=== PATIENT | male | born 1955 | race African-American/Black ===

== ENCOUNTER 2017-11-22 17:31 | Emergency (ER) | payer MEDICARE, MEDICAID ==
[2017-11-22] MEDS ORDERED: Ketorolac Tromethamine 30 MG/ML VIAL ONE (18:47)
--- NOTE | 2017-11-22 19:16 | RAD ---
TWO VIEWS LEFT HIP 11/22/17 INDICATION: Mechanical fall with left hip pain. FINDINGS: There is subtle irregularity seen at the superior aspect of the femoral head/neck junction on both th e frogleg lateral and the AP projection suspicious for a nondisplaced subcapital femoral neck fractur e. Dedicated CT of the left hip is recommended for additional characterization. There is moderate lef t hip osteoarthrosis. IMPRESSION: Findings suspicious for a nondisplaced subcapital femoral neck fracture. Further evaluation with CT i s recommended for additional characterization. POS: [facility]
[2017-11-22 19:20] LABS: #Eosinphils 0.1 thou/uL (0.0-0.7); #Lymphocytes 1.1 thou/uL (1.20-3.40); #Monocytes 0.2 thou/uL (0.11-0.59); #Neutrophils 1.3 thou/uL (1.40-6.50); %Basophils 0.9 % (0.0-1.0); %Eosinophils 2.3 % (0.0-10.0); %Lymphocytes 41.3 % (21.0-51.0); %Monocytes 7.2 % (0.0-10.0); %Neutrophils 48.3 % (42.0-75.0); Mean Corpuscular Hemoglobin 27.3 pg (27.0-31.0); Mean Corpuscular Volume 80.2 fL (78.0-98.0); Mean Platelet Volume 7.4 fL (7.4-10.4); Platelet Count 162 thou/uL (130-400); RBC Distribution Width 13.3 % (11.5-14.5); Red Blood Cell (RBC) Count 4.76 mill/uL (4.70-6.10); White Blood Cell (WBC) Count 2.7 thou/uL (4.8-10.8)
[2017-11-22 19:40] LABS: ALT (SGPT) 14 U/L (8-55); AST (SGOT) 19 U/L (5-34); Albumin 4.2 g/dL (3.4-4.8); Alkaline Phosphatase 88 U/L (40-150); Anion Gap 11 mmol/L (10-20); BUN (Urea Nitrogen) 24 mg/dL (8.4-25.7); Bilirubin, Total 0.7 mg/dL (0.2-1.2); CK (CPK) 366 U/L (30-200); Calc. Creatinine Clearance 0 mL/min (70-130); Calcium 9.4 mg/dL (7.8-10.44); Carbon Dioxide 26 mmol/L (23-31); Chloride 106 mmol/L (98-107); Estimated GFR-MDRD 55; Globulin 3.7 g/dL (2.4-3.5); Glucose 78 mg/dL (80-115); Protein, Total 7.9 g/dL (5.8-8.1); Sodium 139 mmol/L (136-145)
--- NOTE | 2017-11-22 20:04 | CT ---
CT OF PELVIS 11/22/17 COMPARISON: None. HISTORY: Fall, trauma, pain. TECHNIQUE: Serial axial CT imaging at 3.75 mm intervals through the pelvis without contrast. Coronal and sagitta l reformatted imaging obtained. FINDINGS: There is significant degenerative change involving the imaged lower lumbar spine with disc space narr owing and bilateral facet osteophyte formation. There is no widening of the sacroiliac joints or the pubic symphysis. Neither hip appears dislocation. There is mild/moderate bilateral hip degenerative change with joint space narrowing, subchondral sclerosis and osteophyte formation. No fracture is seen on either side. Bilateral inferior and superior pubic rami appear intact with no evidence for fracture. No evidence f or a sacral fracture. IMPRESSION: No acute osseous abnormality. Hip degenerative changes noted bilaterally. This study was reviewed in consultation with Dr. Head who is in agreement. POS: [facility]
[2017-11-22] MEDS ORDERED: Penicillin V Potassium 250 MG TAB PO SCH (21:15)
== END 2017-11-22 22:06 | disposition home or self-care (01) ==
LOC: ERS 17:31
DX: N17.9 Acute kidney failure, unspecified (principal); M54.32 Sciatica, left side; K02.9 Dental caries, unspecified; I10 Essential (primary) hypertension; B20 Human immunodeficiency virus [HIV] disease; E11.9 Type 2 diabetes mellitus without complications; M25.561 Pain in right knee; M25.552 Pain in left hip; K03.81 Cracked tooth; Z79.4 Long term (current) use of insulin; Z79.899 Other long term (current) drug therapy; W18.30XA Fall on same level, unspecified, initial encounter
CPT/HCPCS: 36415; 72192; 80053; 82550; 85025; 96361; 96374; J1885

== ENCOUNTER 2017-12-04 11:03 | Emergency (ER) | payer MEDICARE, MEDICAID ==
[2017-12-04] MEDS ORDERED: HYDROcodone/Acetaminophen 5/325 mg Tablet ONE (12:46)
--- NOTE | 2017-12-04 13:18 | RAD ---
2 VIEWS LEFT TIBIA AND FIBULA: Date: 12/04/17 HISTORY: Left lower extremity pain from level of the knee to the ankle. Increased pain with movement and press ure. FINDINGS: No fracture or dislocation is seen involving the left tibia or fibula. No other osseous abnormality. IMPRESSION: No acute osseous abnormality. POS: [facility]
--- NOTE | 2017-12-04 13:19 | RAD ---
4 VIEWS LEFT KNEE: Date: 12/04/17 HISTORY: Left lower extremity pain from the level of the knee to the left of the ankle on the left. IMPRESSION: There is mild tricompartment osteophytosis. Calcifications overlie both the medial and lateral compar tment suggesting chondrocalcinosis. No significant joint space narrowing is present. There is no evid ence of a fracture or dislocation involving the left knee. IMPRESSION: Mild osteoarthritis without evidence of an acute osseous abnormality. POS: [facility]
== END 2017-12-04 13:39 | disposition home or self-care (01) ==
LOC: ERS 11:03
DX: M79.662 Pain in left lower leg (principal); B20 Human immunodeficiency virus [HIV] disease; I10 Essential (primary) hypertension; E11.9 Type 2 diabetes mellitus without complications; Z79.4 Long term (current) use of insulin; Z79.899 Other long term (current) drug therapy
CPT/HCPCS: 36416

== ENCOUNTER 2018-06-02 20:35 | Emergency (ER) | payer MEDICARE, MEDICAID | END 2018-06-02 20:50 | disposition home or self-care (01) | LOC: ERS 20:35 | DX: K03.81 Cracked tooth (principal); M19.90 Unspecified osteoarthritis, unspecified site; B20 Human immunodeficiency virus [HIV] disease; I10 Essential (primary) hypertension; E11.39 Type 2 diabetes mellitus with other diabetic ophthalmic complication; H42 Glaucoma in diseases classified elsewhere; Z79.899 Other long term (current) drug therapy | CPT/HCPCS: 99283 ==

== ENCOUNTER 2018-06-27 06:26 | Emergency (ER) | payer MEDICARE, MEDICAID | END 2018-06-27 09:36 | disposition home or self-care (01) | LOC: ERS 06:26 | DX: K02.9 Dental caries, unspecified (principal); B20 Human immunodeficiency virus [HIV] disease; I10 Essential (primary) hypertension; E11.9 Type 2 diabetes mellitus without complications | CPT/HCPCS: 99283 ==

== ENCOUNTER 2018-10-31 22:26 | Observation (INO) | payer MEDICARE, MEDICAID ==
--- NOTE | 2018-10-31 22:50 | RAD ---
PORTABLE [place]IVID[place]: 10/31/18 HISTORY: Chest pain. COMPARISON: 07/07/13 exam. Heart size and mediastinum within normal limits. The lungs are clear of infiltrates. There are no sig nificant bony findings. IMPRESSION: No active intrathoracic disease. POS: [facility]
[2018-10-31 23:01] LABS: #Lymphocytes 1.2 thou/uL (1.20-3.40); #Monocytes 0.5 thou/uL (0.11-0.59); #Neutrophils 5.9 thou/uL (1.40-6.50); %Basophils 0.3 % (0.0-1.0); %Eosinophils 0.4 % (0.0-10.0); %Lymphocytes 15.3 % (21.0-51.0); Mean Corpuscular HGB CONC 33.8 g/dL (32.0-36.0); Mean Corpuscular Hemoglobin 26.6 pg (27.0-31.0); Mean Corpuscular Volume 78.7 fL (78.0-98.0); Mean Platelet Volume 8.6 fL (7.4-10.4); Platelet Count 190 thou/uL (130-400); Red Blood Cell (RBC) Count 6.01 mill/uL (4.70-6.10); White Blood Cell (WBC) Count 7.5 thou/uL (4.8-10.8)
[2018-10-31 23:22] LABS: ALT (SGPT) 17 U/L (8-55); AST (SGOT) 17 U/L (5-34); Albumin 5.1 g/dL (3.4-4.8); Alkaline Phosphatase 115 U/L (40-150); Anion Gap 21 mmol/L (10-20); BUN (Urea Nitrogen) 32 mg/dL (8.4-25.7); Calc. Creatinine Clearance 0 mL/min (70-130); Calcium 11.1 mg/dL (7.8-10.44); Carbon Dioxide 17 mmol/L (23-31); Chloride 106 mmol/L (98-107); Estimated GFR-MDRD 24; Globulin 4.6 g/dL (2.4-3.5); Glucose 140 mg/dL (80-115); Lipase 50 U/L (8-78); Potassium 5.1 mmol/L (3.5-5.1); Protein, Total 9.7 g/dL (5.8-8.1); Sodium 139 mmol/L (136-145)
[2018-10-31] MEDS ORDERED: Morphine 4 MG/ML VIAL ONE (23:42)
[2018-10-31] MEDS ORDERED: Aspirin 325 MG TAB ONE (23:42)
[2018-10-31 23:43] LABS: CKMB 3.5 ng/mL (0-6.6)
--- NOTE | 2018-11-01 02:10 | PDOC.FPRHP ---
- History of Present Illness Chief Complaint: multiple complaints History of Present Illness: Mr. Mccracken if a 63 yo AAM with PMH HIV, latent TB, cHTN, IDDM2, anemia who presents to the ER for chest pain. He actually points at the RUQ of his abdomen saying it's been causing him a sharp pain for the past 4 days. He describes the location along his ribs, worse with movement and deep breaths, better with rest. Denies prior cardiac history. Has not been to doctor in a long time. Has a multitude of other symptoms he has been experiencing including emesis x1 yesterday (no blood noted), two episodes of loose diarrhea. Denies fevers, postprandial pain, dysuria. Denies orthopnea or lower leg swelling. 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 ED Course: Was given ASA & morphine. EKG showed 1mm ST elevations in V2/V3. - Allergies/Adverse Reactions Allergies Allergy/AdvReac Type Severity Reaction Status Date / Time No Known Allergies Allergy Verified 11/01/18 04:06 - Home Medications Medication Instructions Recorded Confirmed Type HumaLOG [HumaLOG Vial] 10 unit SQ AC 02/23/13 11/01/18 History Gabapentin [Neurontin] 100 mg PO BID 07/08/13 11/01/18 History Elviteg/Cob/Emtri/Tenofo Disop 1 tab PO QAM-WM #0 tablet 02/09/14 11/01/18 Rx [Stribild] Lisinopril [Zestril] 10 mg PO DAILY #30 tab 09/21/16 11/01/18 Rx Insulin Detemir [Levemir] 60 unit SQ BID 11/01/18 11/01/18 History - History PMHx:HIV, HTN, anemia, gout, IDDM2, latent TB PSHx: right hand surgery, back surgery for ruptured lumbar discs FHx:Cancer (mom), DM, HTN Social: denies TAD - Review of Systems General: denies: fever/chills, weight/appetite/sleep changes Respiratory: reports: shortness of breath Cardiovascular: denies: chest pain, edema Gastrointestinal: reports: nausea, vomiting, diarrhea, abdominal pain. denies: constipation, GI bleeding Skin: denies: rashes, lesions Musculoskeletal: reports: pain, tenderness Neurological: denies: seizure, weakness - Vital signs BP: [146/76] HR: [68] RR: [15] Tmax: [97.5] Pox: [98]% on [RA] Wt: [83kg] - Physical Exam Constitutional: NAD, awake, alert and oriented HEENT: normocephalic and atraumatic, PERRLA, EOMI -HEENT: disheveled appearing dry mucosal membranes Neck: supple, FROM Chest: no-tender to palpation Heart: RRR, normal S1/S2, no murmurs/rubs/gallops, pulses present Lungs: CTAB, no respiratory distress, good air movement -Abdomen: epigastric tenderness to palpation suprapubic tenderness to palpation negative murphys, negative rovsings no guarding or rebound Musculoskeletal: normal tone, ROM grossly normal -Musculoskeletal: tenderness along thoracic paraspinal muscles and along right rib cage Neurological: no focal deficit, CN II-XII intact Skin: no rash/lesions -Skin: dec skin turgor Heme/Lymphatic: no unusual bruising or bleeding -Heme/Lymphatic: poor hygiene of feet FMR H&P: Results - Labs Result Diagrams: 11/01/18 14:01 11/01/18 14:01 Lab results: WBC 7.5 thou/uL (4.8-10.8) 10/31/18 22:47 Hgb 16.0 g/dL (14.0-18.0) 10/31/18 22:47 Hct 47.3 % (42.0-52.0) 10/31/18 22:47 MCV 78.7 fL (78.0-98.0) 10/31/18 22:47 Plt Count 190 thou/uL (130-400) 10/31/18 22:47 Neutrophils % 78.0 % (42.0-75.0) H 10/31/18 22:47 Sodium 139 mmol/L (136-145) 10/31/18 22:47 Potassium 5.1 mmol/L (3.5-5.1) 10/31/18 22:47 Chloride 106 mmol/L (98-107) 10/31/18 22:47 Carbon Dioxide 17 mmol/L (23-31) L 10/31/18 22:47 BUN 32 mg/dL (8.4-25.7) H 10/31/18 22:47 Creatinine 3.17 mg/dL (0.7-1.3) H 10/31/18 22:47 Glucose 140 mg/dL (80-115) H 10/31/18 22:47 Calcium 11.1 mg/dL (7.8-10.44) H 10/31/18 22:47 Total Bilirubin 1.0 mg/dL (0.2-1.2) 10/31/18 22:47 AST 17 U/L (5-34) 10/31/18 22:47 ALT 17 U/L (8-55) 10/31/18 22:47 Alkaline Phosphatase 115 U/L (40-150) 10/31/18 22:47 CK-MB (CK-2) 3.5 ng/mL (0-6.6) 10/31/18 22:47 Serum Total Protein 9.7 g/dL (5.8-8.1) H 10/31/18 22:47 Albumin 5.1 g/dL (3.4-4.8) H 10/31/18 22:47 Lipase 50 U/L (8-78) 10/31/18 22:47 - Radiology Interpretation CT scan - abdomen Status: pending US - abdomen Status: report reviewed by me Additional comment: neg for cholecystitis Chest x-ray Additional comment: no acute cardiopulm processes FMR H&P: A/P - Problem List (1) Atypical chest pain Current Visit: Yes Status: Acute Code(s): R07.89 - OTHER CHEST PAIN (2) RUQ pain Current Visit: Yes Status: Acute Code(s): R10.11 - RIGHT UPPER QUADRANT PAIN (3) CELIO (acute kidney injury) Current Visit: Yes Status: Acute Code(s): N17.9 - ACUTE KIDNEY FAILURE, UNSPECIFIED (4) Diabetes mellitus, insulin dependent (IDDM), controlled Current Visit: No Status: Acute Code(s): E11.9 - TYPE 2 DIABETES MELLITUS WITHOUT COMPLICATIONS; Z79.4 - OCCUPATIONAL HEALTH RN (CURRENT) USE OF INSULIN (5) HIV (human immunodeficiency virus infection) Current Visit: No Status: Acute (6) HTN (hypertension) Current Visit: No Status: Acute Code(s): I10 - ESSENTIAL (PRIMARY) HYPERTENSION Qualifiers: Hypertension type: essential hypertension Qualified Code(s): I10 - Essential (primary) hypertension (7) Iron deficiency anemia Current Visit: No Status: Acute Code(s): D50.9 - IRON DEFICIENCY ANEMIA, UNSPECIFIED Qualifiers: Iron deficiency anemia type: unspecified iron deficiency Qualified Code(s) : D50.9 - Iron deficiency anemia, unspecified (8) Neuropathy Current Visit: No Status: Acute Code(s): G62.9 - POLYNEUROPATHY, UNSPECIFIED - Plan 63 yo AAM with HIV, cHTN, gout, IDDM2, latent TB, HLD #Atypical chest pain -Heart score 4, EKG with 1mm ST elevation in V2/V3 -Indeterminate troponin .188, continue to trend -Per patient may have had NST done a year ago, not sure. No records in chart. NPO at midnight with stress test in AM -Admit to tele/obs for ACS rule out #RUQ pain -CT abd/pelvis wnl per ER provider, official read pending -Obtain RUQ U/S -pantoprazole #CELIO -Cr 3.17, unsure of baseline -mIVF, rpt BMP in AM #HIV -has not seen Dr. De La Fuente for a year -rx follow up outpatient -will check CD4 count due to noncompliance with f/u -continue stribild #cHTN -home meds #IDDM2 -sliding scale while NPO -can resume home meds after stress test #Latent TB -per patient, completed treatment with health department this year #Chronic hep C -In remission per patient -Will check HCV titer PCP: CC dvt ppx: heparin TID gi px: pantoprazole dispo: <2 midnights Discussed w/ Dr. Mclain FMR H&P: Upper Level - Plan Date/Time: 11/01/18 0210 Mark Carey, have evaluated this patient and agree with findings/plan as outlined by internal combustion engine subassembler resident. Pertinent changes/additions are listed here. HPI Pt is a 63 y/o M with hx/o HIV, DM, HTN, HepC(Treated), presenting for chest pain. Complains of chest pain and SOB for 4d. R sided and radiating to R shoulder. Associated SOB occasionally with exertion. Associated vomiting and diarrhea for 2d with decreased appetite. No recent travel or unusual foods. Has had increased fatigue and loss of balance in the past several weeks. Admits to normal intake and is usually thirsty. Is on Stribild for HIV and states he is compliant, but has not seen Dr De La Fuente in several years. Not aware of any renal disorder he has. PROBLEM LISTANDPLAN: # Elvated Troponins- Possibly 2/2 acute renal failure and demand, but does have slight ST elevation of 1mm in V2-3 that does not qualify as STEMI. Chest pain is atypical and mostly in RUQ and R lateral mid back but very difficult to quantify. Possible referred pain from GB? Will continue to trend Troponins and serial EKGs. Consider stress test in AM as he has multiple comorbid conditions and Heart score 6. # RUQ Tenderness- CT Abdomen/Pelvis WNL, but will order RUQ US for additional evaluation. # CELIO- Unknown etiology, Will obtain urine studies and will continue IVF. Repeat BMP in AM and monitor closely. # HIV- No known acute issues. Will order CD4/VL as has not seen ID in ~2yrs and suspected medication noncompliance. # HTN- No acute issues, continue home medications # Hep C- S/p treatment with [facility] # Back Pain- R lateral ribs. Does have significant arthritic changes on CT. Believe this could be muscle spasm or referred pain. Addendum - Attending - Attending Attestation Date/Time: 11/02/18 [id number] I personally evaluated the patient and discussed the management with I agree with the History, Examination, Assessment and Plan documented above with any addition or exceptions noted below.
[2018-11-01] MEDS ORDERED: Nitroglycerin 0.4 MG TAB (25 Tab Bottle) PO PRN (03:38)
[2018-11-01] MEDS ORDERED: Ondansetron ODT 4 MG TAB PO PRN (03:38)
[2018-11-01] MEDS ORDERED: Dextrose 50% Abboject 50 ML SYRINGE SLOW IVP PRN (03:38)
[2018-11-01] MEDS ORDERED: HumaLOG 300 UNITS/3 ML VIAL SC PRN (03:38)
[2018-11-01] MEDS ORDERED: Dextrose 5% in Water 1,000 ML IV PRN (03:38)
[2018-11-01] MEDS ORDERED: Sodium Chloride 0.9% 1,000 ML IV SCH (03:45)
[2018-11-01 03:46] VITALS: BMI 25.7
[2018-11-01] MEDS: Sodium Chloride 0.9% 1,000 ML IV SCH ×3 (04:21→14:43)
[2018-11-01 05:52] LABS: Hemoglobin A1c 5.8 % (4.0-6.0)
[2018-11-01 06:02] LABS: Bilirubin Small (Negative); Blood, Urine Negative (Negative); Clarity Clear (Clear); Glucose, Urine (Dipstick) Negative (Negative); Leukocyte Negative (Negative); Nitrite Negative (Negative); Protein, Urine (Dipstick) 100 mg/dL (Neg-Trace); Urobilinogen 0.2 mg/dL (0.2-1.0)
[2018-11-01 06:07] LABS: Amphetamine Not Detected (NotDetected); Barbiturates Screen Not Detected (NotDetected); Benzodiazepine Screen Not Detected (NotDetected); Cocaine Metabolite Screen Detected (NotDetected); Medtox Control Line Valid? VALID (VALID); Medtox Reader # READER 1; Methadone Not Detected (NotDetected); Methamphetamine Not Detected (NotDetected); Opiate Screen Detected (NotDetected); Oxycodone Screen Not Detected (NotDetected); Phencyclidine (PCP) Not Detected (NotDetected); THC/Cannabinoid Screen Not Detected (NotDetected); Tricyclic Screen Not Detected (NotDetected)
[2018-11-01 06:13] LABS: Bacteria/HPF Rare-Few HPF (None Seen); RBC/HPF 0-3 HPF (0-3); Squamous Epithelial 0-3 HPF (0-3); WBC/HPF 0-3 HPF (0-3)
[2018-11-01 06:14] LABS: Other Casts/LPF 0-3 FINELY GRAN LPF (0-3 Hyaline); Urine Culture Reflex No No
[2018-11-01] MEDS ORDERED: Cyclobenzaprine 10 MG TAB PO SCH (06:15)
--- NOTE | 2018-11-01 07:03 | ULT ---
GALLBLADDER ULTRASOUND: INDICATIONS: Pain. COMPARISON: 09/19/2016 FINDINGS: There is increased echogenicity of the liver. No acute gallbladder pathology. The common duct is no rmal where visualized, measuring 3 to 4 mm in diameter. No ascites. IMPRESSION: Findings indicate hepatic steatosis. Correlate with liver function enzymes. No acute gallbladder pa thology is identified. POS: [facility]
--- NOTE | 2018-11-01 07:52 | CT ---
PRELIMINARY REPORT/[facility]/EMERGENCY AFTER HOURS PROCEDURE EXAM: CT Abdomen and Pelvis Without Contrast EXAM DATE/TIME: 11/01/2018 12:09 AM CLINICAL HISTORY: 63 years old, male; Other: Back pain; Patient HX: Additional history obtained from EMS, 63 year old m pedro presents to the er with chief complaint of upper epigastric pain and chest tightness with nausea and vomiting. Describes pain as tearing/pulling. Patient reports history of nausea w/ vomiting as wel l. Given Zofran and asa prior to arrival by EMS. Reports extensive medical history including hiv, tb (not active) , dm, HTN , hep c (remission) TECHNIQUE: Imaging protocol: Axial computed tomography images of the abdomen and pelvis without contrast. COMPARISON: No relevant prior studies available. FINDINGS: Liver: Normal. Gallbladder and bile ducts: Normal Pancreas: Normal. Spleen: Normal. Adrenals: Normal. Kidneys and ureters: Normal. Stomach and bowel: Normal. Appendix: Appendix is normal. Intraperitoneal space: Normal. No free air. No significant fluid collection. Vasculature: Normal. No abdominal aortic aneurysm. Lymph nodes: Normal. No enlarged lymph nodes. Bladder: Unremarkable as visualized. Reproductive: Unremarkable as visualized. Bones/joints: Multilevel thoracolumbar spine degenerative changes, with levoscoliosis of the lumbar s pine. Soft tissues: Small fat containing umbilical hernia. IMPRESSION: No acute abdominal or pelvic abnormality. Thank you for allowing us to participate in the care of your patient. Dictated and Authenticated by: Jose R Paulson MD 11/01/2018 1:03 AM Central Time ([place] & [place]) FINAL REPORT CT ABDOMEN AND PELVIS WITHOUT CONTRAST: FINDINGS/IMPRESSION: I agree with the findings and impression given in the preliminary report, per [facility] physician. No evidence of acute intraabdominal/pelvic abnormality. POS: [facility]
[2018-11-01] MEDS ORDERED: Elviteg/Cob/Emtri/Tenofo Disop [Stribild] 1 TAB PO SCH (08:00)
[2018-11-01] MEDS ORDERED: Enoxaparin Sodium 40 MG/0.4 ML SYRINGE SC SCH (09:00)
[2018-11-01] MEDS ORDERED: Enoxaparin Sodium 30 MG/0.3 ML SYRINGE SC SCH (09:00)
[2018-11-01] MEDS: Heparin 5,000 UNITS/ML VIAL SC SCH ×3 (11:18→21:23)
[2018-11-01] MEDS: Aspirin 325 mg Enteric Coated Tablet PO SCH (11:54)
[2018-11-01] MEDS: Gabapentin 100 MG CAP PO SCH ×2 (11:54→21:23)
--- NOTE | 2018-11-01 12:17 | NM ---
NUCLEAR MEDICINE CARDIAC STRESS WITH EF AND WALL MOTION: HISTORY: ACS rule out, chest pain. COMPARISON: None. TECHNIQUE: The patient was administered 10.7 mCi of technetium 99m sestamibi for rest imaging and 33.0 mm of liliya hnetium 99m sestamibi for imaging. Cardiac gating is performed. FINDINGS: Homogeneous distribution of the radiotracer in the left ventricle. No reversibility. No fixed defects . TID is 1.10. End-diastolic volume is 142 mL. End systolic volume 85 mL. Cardiac gating: Normal motion and thickening. 61% ejection fraction. IMPRESSION: 1. 61% ejection fraction. 2. No evidence of fixed defect or reversibility. Homogeneous distribution in the left ventricle. Transcribed Date/Time: 11/01/2018 12:25 PM
[2018-11-01] MEDS ORDERED: Regadenoson 0.4 MG/5 ML SYRINGE ONE (13:09)
[2018-11-01 14:12] LABS: #Eosinphils 0.1 thou/uL (0.0-0.7); #Lymphocytes 1.2 thou/uL (1.20-3.40); #Monocytes 0.4 thou/uL (0.11-0.59); #Neutrophils 2.4 thou/uL (1.40-6.50); %Basophils 0.7 % (0.0-1.0); %Eosinophils 2.5 % (0.0-10.0); %Neutrophils 58.8 % (42.0-75.0); Hemoglobin 13.8 g/dL (14.0-18.0); Mean Corpuscular HGB CONC 33.1 g/dL (32.0-36.0); Mean Corpuscular Hemoglobin 26.5 pg (27.0-31.0); Mean Platelet Volume 8.2 fL (7.4-10.4); Platelet Count 146 thou/uL (130-400); RBC Distribution Width 14.1 % (11.5-14.5); White Blood Cell (WBC) Count 4.1 thou/uL (4.8-10.8)
[2018-11-01 14:32] LABS: Anion Gap 13 mmol/L (10-20); BUN (Urea Nitrogen) 38 mg/dL (8.4-25.7); Calc. Creatinine Clearance 46 mL/min (70-130); Calcium 9.5 mg/dL (7.8-10.44); Carbon Dioxide 23 mmol/L (23-31); Cardiac Risk 3.6 (Less than 4.5); Chloride 107 mmol/L (98-107); Cholesterol 136 mg/dl (< 200 Desired); Estimated GFR-MDRD 43; Glucose 81 mg/dL (80-115); HDL Cholesterol 38 mg/dL (>60 Neg Risk); LDL Cholesterol, Calculated 86 mg/dL; Potassium 4.3 mmol/L (3.5-5.1); Sodium 139 mmol/L (136-145); Triglycerides 59 mg/dL (Less than 150)
--- NOTE | 2018-11-01 19:52 | CON ---
DATE OF CONSULTATION: 11/01/2018 REASON FOR CONSULT: HIV infection, type 2 diabetes poorly controlled, and acute renal failure. HISTORY OF PRESENT ILLNESS: A 63-year-old patient known to me for many years, who has not been in the clinic for 3 years now with a history of longstanding HIV infection with good adherence to anti-retroviral therapy, but poor compliance with clinic visits over the past 3 years. The last time that I saw this patient was in 2017 when he presented with right foot inflammatory process. At that time, he had discontinued his anti-retroviral therapy. No evidence of osteomyelitis or septic arthritis, and he was transitioned to oral antimicrobial therapy for discharge planning. His CD4 cell count is 308 in 2017 and no viral load was done at that time, because he was not on anti-retroviral therapy. He claims to have resumed Stribild, but no control of his viremia and CD4 cell count or other labs were done because of lack of clinic visits and he continued to take his medications reportedly and presented to the emergency room because of what he describes has pain in the right back area close to the subscapular region, radiating around and wrapping around the right chest lateral aspect with a pleuritic component. He had no headaches. No change in visual symptoms, sore throat, odynophagia, or dysphagia. No spine pain. No dyspnea. Some vomiting. No genitourinary symptoms. No other appendicular structure symptoms. No neurological symptoms. PAST MEDICAL HISTORY: HIV seropositive status, his CD4 cell count was 307 in 2017, his last viral load was 48 in 2016. He also has a history of hepatitis C, which was treated in 2016 successfully with a negative viral load three months after completion of treatment with Harvoni. History of type 2 diabetes with erratic control, part of it has to do with his inability to obtain his medication due to financial issues. Hypertension, tuberculosis treated, and rheumatoid arthritis. 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 SOCIAL HISTORY: No smoking. No alcoholic beverage use. FAMILY HISTORY: Noncontributory. ALLERGIES: NONE. MEDICATIONS: Currently receiving; 1. Ecotrin. 2. Neurontin. 3. Heparin. 4. Insulin. 5. Protonix. 6. Stribild. PHYSICAL EXAMINATION: VITAL SIGNS: T-max 97.6, blood pressure 150/70, pulse 69, respirations 16, and O2 saturation 100. SKIN: No particular findings. Peripheral IV access. No Mosley catheter. HEENT: Ocular movements conjugate. Sclerae white. Oral cavity normal. Numerous missing teeth. NECK: Supple. No jugular vein distention. LUNGS: Symmetric clear breath sounds. HEART: S1 and S2. Regular rate. No murmurs. No S3 or S4. Tender spot in the right posterior chest area right at the subscapular region and wrapping around the anterolateral chest, quite tender to palpation. ABDOMEN: Soft, not distended or tender. No ascites. No bladder distention. Moves extremities on command. Follows commands properly. Oriented. Speech is normal. Recollection is normal. LABORATORY DATA: White cell count 7.5, hemoglobin 16, total lymphocyte count 1.2, and platelets 190,000. Sodium 139 and creatinine 3.17. Previous creatinine was 1.54. The one in 2017 was 1. The most recent creatinine 1.9 after volume repletion. Calcium 11, albumin 5.1, globulin 4.6. Urinalysis, 0 to 3 wbc's. Toxicology with cocaine and opiates. Microbiology is not available. The patient had a stress test, nuclear medicine study completed of 61% ejection fraction and no fixed defect or reversible defect noted. His abdomen and pelvis CT, which was essentially normal and there is a chest x-ray with no active intrathoracic disease. ASSESSMENT: 1. Longstanding human immunodeficiency virus infection with erratic adherence to anti-retroviral therapy in the past, CD4 in the mid 300 range. Last visit in the clinic was three years ago. 2. Acute renal failure of uncertain etiology, probably related to volume depletion and hemodynamically-mediated renal insufficiency associated with vomiting. 3. Pain, which is atypical in the right chest area, pleuritic type and probably musculoskeletal in nature. Some of the pain characteristics are suggestive of a radiculopathic process, which might indicate spinal process. 4. Treated and cured hepatitis C. DISCUSSION: We will repeat his viral load and CD4 cell count. We will also repeat hepatitis C viral load. Hopefully, his renal function returned to normal, but for the time being will discontinue Stribild and switch him to a drug that is not dependent on kidney filtration for excretion. Depending on further improvement in GFR, may switch him to Biktarvy in OP setting. Job ID: [id number] [facility]
[2018-11-01] MEDS: Lopinavir/Ritonavir 200-50mg TAB PO SCH (21:24)
[2018-11-01] MEDS: HumaLOG 300 UNITS/3 ML VIAL SC PRN (22:11)
[2018-11-01] MEDS: Raltegravir Potassium 400 MG TAB PO SCH (22:22)
[2018-11-02] MEDS: Sodium Chloride 0.9% 1,000 ML IV SCH ×3 (00:29→14:23)
[2018-11-02 04:55] LABS: #Eosinphils 0.1 thou/uL (0.0-0.7); #Lymphocytes 1.1 thou/uL (1.20-3.40); #Monocytes 0.3 thou/uL (0.11-0.59); #Neutrophils 0.8 thou/uL (1.40-6.50); %Basophils 1.3 % (0.0-1.0); %Eosinophils 4.2 % (0.0-10.0); %Lymphocytes 47.3 % (21.0-51.0); %Monocytes 11.1 % (0.0-10.0); Hemoglobin 13.1 g/dL (14.0-18.0); Mean Corpuscular HGB CONC 33.7 g/dL (32.0-36.0); Mean Corpuscular Hemoglobin 27.2 pg (27.0-31.0); Mean Platelet Volume 8.3 fL (7.4-10.4); Platelet Count 128 thou/uL (130-400); Red Blood Cell (RBC) Count 4.81 mill/uL (4.70-6.10); White Blood Cell (WBC) Count 2.3 thou/uL (4.8-10.8)
[2018-11-02 05:20] LABS: Anion Gap 10 mmol/L (10-20); BUN (Urea Nitrogen) 25 mg/dL (8.4-25.7); Calc. Creatinine Clearance 78 mL/min (70-130); Calcium 8.4 mg/dL (7.8-10.44); Carbon Dioxide 20 mmol/L (23-31); Cardiac Risk 3.5 (Less than 4.5); Chloride 110 mmol/L (98-107); Cholesterol 124 mg/dl (< 200 Desired); Estimated GFR-MDRD 74; Glucose 117 mg/dL (80-115); HDL Cholesterol 35 mg/dL (>60 Neg Risk); LDL Cholesterol, Calculated 74 mg/dL; Potassium 4.3 mmol/L (3.5-5.1); Sodium 136 mmol/L (136-145); Triglycerides 76 mg/dL (Less than 150)
--- NOTE | 2018-11-02 07:24 | PDOC.FM ---
- Subjective Subjective: NACHO overnight, patient resting in bed comfortably this AM. No new complaints. - Objective MAR Reviewed: Yes Vital Signs & Weight: Vital Signs (12 hours) Temp Pulse Resp BP Pulse Ox 11/02/18 04:25 97.4 F L 58 L 14 134/78 98 Weight Admit Weight 83.824 kg Weight 89.086 kg I&O: 11/01/18 11/02/18 11/03/18 06:59 06:59 06:59 Intake Total 469 5181 Output Total 250 2100 Balance 219 3081 Result Diagrams: 11/02/18 04:34 11/02/18 04:34 Phys Exam - Physical Examination Constitutional: NAD HEENT: PERRLA, moist MMs Respiratory: clear to auscultation bilateral Cardiovascular: RRR Neurological: non-focal Psychiatric: normal affect Dx/Plan (1) Atypical chest pain Code(s): R07.89 - OTHER CHEST PAIN Status: Acute Plan: Negative stress yesterday w/ downtrending trops Negative CT-AP and RUQ U/S for acute pathology ECHO w/ EF 60-65% w/ findings suggestive of some diastolic dysfunction 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 to monitor (3) Diabetes mellitus, insulin dependent (IDDM), controlled Code(s): E11.9 - TYPE 2 DIABETES MELLITUS WITHOUT COMPLICATIONS; Z79.4 - OPERATIONS TEAM LEADER (CURRENT) USE OF INSULIN Status: Acute Plan: Cont. w/ outpatient regimen AC/HS accuchecks (4) HIV (human immunodeficiency virus infection) Status: Acute Plan: Pending CD4 count Cont. w/ new Anti-retroviral angents started by ID Will need to follow-up with ID outpatient for continued monitoring (5) HTN (hypertension) Code(s): I10 - ESSENTIAL (PRIMARY) HYPERTENSION Status: Acute Qualifiers: Hypertension type: essential hypertension Qualified Code(s): I10 - Essential (primary) hypertension Plan: Cont. w/ home regimen Addendum - Attending - Attending Attestation Date/Time: 11/02/18 1050 I personally evaluated the patient and discussed the management with Dr. Ordonez I agree with the History, Examination, Assessment and Plan documented above with any addition or exceptions noted below. Stress test normal, discussed with Patient dangers of continued use of cocaine. Appreciate ID recommendation for HIV, Renal function has improved to near normal. Restart basal insulin and dismissal later today unless further ID recommendations.
[2018-11-02] MEDS: Gabapentin 100 MG CAP PO SCH ×2 (08:08→20:13)
[2018-11-02] MEDS: Aspirin 325 mg Enteric Coated Tablet PO SCH (08:08)
[2018-11-02] MEDS: Lopinavir/Ritonavir 200-50mg TAB PO SCH ×2 (08:09→20:13)
[2018-11-02] MEDS: Raltegravir Potassium 400 MG TAB PO SCH ×2 (08:09→20:13)
[2018-11-02] MEDS: HumaLOG 300 UNITS/3 ML VIAL SC PRN ×2 (10:54→16:48)
[2018-11-02] MEDS ORDERED: Insulin Glargine 15 UNITS in Pre-Filled Syringe 1 EACH SC SCH (11:15)
[2018-11-02] MEDS ORDERED: Insulin Glargine 10 UNITS in Pre-Filled Syringe 1 EACH SC SCH (11:30)
--- NOTE | 2018-11-02 16:42 | EKG ---
Test Reason : Blood Pressure : / mmHG Vent. Rate : 085 BPM Atrial Rate : 085 BPM P-R Int : 186 ms QRS Dur : 090 ms QT Int : 378 ms P-R-T Axes : 057 039 061 degrees QTc Int : 449 ms Normal sinus rhythm Normal ECG Confirmed by JOSE KABA, RIVERA ([id number]), offline editor GINA LYMAN ([id number]) on 11/02/2018 4:42:21 PM Referred By: Confirmed By:RIVERA GARCIA MD
[2018-11-02] MEDS ORDERED: Cyclobenzaprine 10 MG TAB PO SCH (21:00)
[2018-11-03 04:39] LABS: #Eosinphils 0.1 thou/uL (0.0-0.7); #Lymphocytes 1.1 thou/uL (1.20-3.40); #Monocytes 0.3 thou/uL (0.11-0.59); #Neutrophils 1.2 thou/uL (1.40-6.50); %Basophils 1.3 % (0.0-1.0); %Eosinophils 3.3 % (0.0-10.0); %Lymphocytes 41.4 % (21.0-51.0); %Monocytes 9.8 % (0.0-10.0); %Neutrophils 44.1 % (42.0-75.0); Hemoglobin 13.2 g/dL (14.0-18.0); Mean Corpuscular HGB CONC 32.7 g/dL (32.0-36.0); Mean Corpuscular Hemoglobin 26.6 pg (27.0-31.0); Mean Corpuscular Volume 81.4 fL (78.0-98.0); Mean Platelet Volume 8.1 fL (7.4-10.4); Platelet Count 150 thou/uL (130-400); RBC Distribution Width 13.9 % (11.5-14.5); Red Blood Cell (RBC) Count 4.95 mill/uL (4.70-6.10); White Blood Cell (WBC) Count 2.7 thou/uL (4.8-10.8)
[2018-11-03 04:59] LABS: Anion Gap 10 mmol/L (10-20); BUN (Urea Nitrogen) 17 mg/dL (8.4-25.7); Calc. Creatinine Clearance 89 mL/min (70-130); Calcium 9.1 mg/dL (7.8-10.44); Carbon Dioxide 22 mmol/L (23-31); Chloride 108 mmol/L (98-107); Estimated GFR-MDRD 85; Glucose 121 mg/dL (80-115); Sodium 136 mmol/L (136-145)
[2018-11-03] MEDS ORDERED: Lisinopril 10 MG TAB PO SCH ×2 (07:30→09:00)
--- NOTE | 2018-11-03 08:23 | PDOC.FM ---
- Subjective Subjective: NACHO overnight, patient doing well this AM w/ no complaints. Denies CP/SOB. - Objective MAR Reviewed: Yes Vital Signs & Weight: Vital Signs (12 hours) Temp Pulse Resp BP BP Pulse Ox 11/03/18 04:26 97.7 F 62 15 161/87 H 98 11/02/18 23:42 173/91 H 11/02/18 23:06 97.5 F L 66 20 188/92 H 98 Weight Admit Weight 83.824 kg Weight 89.857 kg I&O: 11/02/18 11/03/18 11/04/18 06:59 06:59 06:59 Intake Total 5181 2325 Output Total 2100 1050 Balance 3081 1275 Result Diagrams: 11/03/18 04:31 11/03/18 04:31 Phys Exam - Physical Examination Constitutional: NAD HEENT: PERRLA, moist MMs Respiratory: no wheezing, clear to auscultation bilateral Cardiovascular: RRR, no significant murmur Neurological: moves all 4 limbs Psychiatric: normal affect, A&O x 3 Dx/Plan (1) Atypical chest pain Code(s): R07.89 - OTHER CHEST PAIN Status: Acute Plan: Negative stress yesterday w/ downtrending trops Negative CT-AP and RUQ U/S for acute pathology ECHO w/ EF 60-65% w/ findings suggestive of some diastolic dysfunction 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 to monitor (3) Diabetes mellitus, insulin dependent (IDDM), controlled Code(s): E11.9 - TYPE 2 DIABETES MELLITUS WITHOUT COMPLICATIONS; Z79.4 - OFFICE SUPPORT SPECIALIST (CURRENT) USE OF INSULIN Status: Acute Plan: Cont. w/ lantus started here in the hospital Increase from 10 units to 14 as he required 4 of short acting SSI overnight Pt will need to follow-up outpatient for further titration of his insulin (4) HIV (human immunodeficiency virus infection) Status: Acute Plan: Pending CD4 count Cont. w/ new Anti-retroviral angents started by ID Will need to follow-up with ID outpatient for continued monitoring (5) HTN (hypertension) Code(s): I10 - ESSENTIAL (PRIMARY) HYPERTENSION Status: Acute Qualifiers: Hypertension type: essential hypertension Qualified Code(s): I10 - Essential (primary) hypertension Plan: Cont. w/ home regimen Addendum - Attending - Attending Attestation Date/Time: 11/03/181809 I personally evaluated the patient and discussed the management with Dr. Ordonez I agree with the History, Examination, Assessment and Plan documented above with any addition or exceptions noted below. Stable for dismissal f/u as outpatient with PCP and Dr De La Fuente ID .
[2018-11-03] MEDS: Aspirin 325 mg Enteric Coated Tablet PO SCH (08:27)
[2018-11-03] MEDS: Gabapentin 100 MG CAP PO SCH (08:28)
[2018-11-03] MEDS: Lopinavir/Ritonavir 200-50mg TAB PO SCH (08:28)
[2018-11-03] MEDS: Raltegravir Potassium 400 MG TAB PO SCH (08:28)
[2018-11-03 08:50] VITALS: BP 142/68; TEMP 97.6
[2018-11-03] MEDS ORDERED: Insulin Glargine 14 UNITS in Pre-Filled Syringe 1 EACH SC SCH (09:00)
[2018-11-03] MEDS ORDERED: Insulin Glargine 15 UNITS in Pre-Filled Syringe 1 EACH SC SCH (09:00)
[2018-11-03] MEDS ORDERED: Insulin Glargine 10 UNITS in Pre-Filled Syringe 1 EACH SC SCH (09:00)
[2018-11-03] MEDS ORDERED: Insulin Glargine 15 UNITS in Pre-Filled Syringe SC SCH (09:00)
[2018-11-03 14:08] LABS: Hep C PCR-Quant HCV Not Detected IU/mL (.)
--- NOTE | 2018-11-03 16:40 | DIS ---
DATE OF ADMISSION: 11/01/2018 DATE OF DISCHARGE: 11/03/2018 ADMITTING ATTENDING: Dr. Mclain. DISCHARGE ATTENDING: Dr. Mclain CONSULTATIONS: Dr. De La Fuente, Infectious Disease. IMAGIN. CT of the abdomen and pelvis from 10/31/2018 showing no evidence of acute intraabdominal or pelvic abnormalities. 2. Chest x-ray showing no active intrathoracic disease. 3. Right upper quadrant abdominal ultrasound showing hepatic steatosis and no acute gallbladder pathology. 4. Nuclear stress test with no evidence of fixed defect or reversibility, homogenous distribution in the left ventricle noted with 61% ejection fraction. 5. Transthoracic echocardiogram showing EF of 60% to 65% and E/A flow reversal noted suggestion of diastolic dysfunction. PRIMARY DIAGNOSES: 1. Atypical Chest Pain 2. Acute kidney injury SECONDARY DIAGNOSES: 1. HIV 2. Latent TB 3. Insulin Dependent Type 2 Diabetes Mellitus 4. Hypertension DISCHARGE MEDICATIONS: 1. Gabapentin 100 mg p.o. b.i.d. 2. Lisinopril 10 mg p.o. daily. 3. Biktarvy one pill by mouth daily. 4. Lantus 10 units subcu daily DISCONTINUED MEDICATIONS: 1. Humalog 10 units subcu a.c. 2. Levemir 60 units subcu b.i.d. 3. Stribild one pill by mouth daily HISTORY OF PRESENT ILLNESS: A 63-year-old male with past medical history of HIV , on Stribild; latent TB; chronic hypertension; insulin-dependent diabetes mellitus, who presented to the ER on 10/31 for evaluation of right upper quadrant/right lower chest pain described as sharp in character over the preceding 4 days. The pain was worse with movement at deep inspiration, better at the rest. No prior cardiac history. The patient had been seen Dr. De La Fuente who managed his HIV, but had not followed with him in the past 2 years. Currently taking Stribild for this. The patient was found to have indeterminate troponin of 0.188, which subsequently downtrended. CT of the abdomen and pelvis and right upper quadrant ultrasound obtained negative for acute intraabdominal pathology. Dr. De La Fuente of Infectious Disease was consulted for further evaluation as he was somewhat lost to follow not being seen by ID in the prior 2 years. The patient was shown to have an CELIO with creatinine up to 3.17 with prior baseline of around approximately 1. He was placed on IV fluids and subsequently downtrended. Due to the possibly causing some nephrotoxicity, Stribild was discontinued and he was transitioned to Linzess and Kcentra. The patient's creatinine downtrended near baseline on the day of discharge with IV fluids from 3.17 down to 1.06 morning of the discharge. Discussion with Dr. De La Fuente with plans to send him home on Biktarvy. CD4 count and HCV labs obtained, but not available at the time of this dictation. DISPOSITION: Stable. DISCHARGE INSTRUCTIONS: 1. Location: Home with primary care provider in 5 to 7 days. 2. Follow up with Dr. De La Fuente in 1 week. 3. Activity ad janine Job ID: [id number] MTDD
[2018-11-03 17:07] LABS: LOG10 HIV-1 RNA 3.47 (.)
[2018-11-04 13:11] LABS: %CD4 (Helper/Inducer) 28.1 % (30.8-58.5); Absolute CD4 393 /uL (359-1519); Lymphocytes/Gated Cell Count 1.4 x10E3/uL (0.7-3.1); Total Lymphocyte 20 % (Not Estab.); WBC Total Count 7.2 x10E3/uL (3.4-10.8)
== END 2018-11-03 10:55 | disposition home or self-care (01) ==
LOC: ERS 22:26 → 2SW 11-01 01:06
PROVIDERS: ADMIT Family Medicine; ATTEND Family Medicine
DX: R07.89 Other chest pain (principal); N17.9 Acute kidney failure, unspecified; B20 Human immunodeficiency virus [HIV] disease; R76.11 Nonspecific reaction to tuberculin skin test without active tuberculosis; E11.42 Type 2 diabetes mellitus with diabetic polyneuropathy; I10 Essential (primary) hypertension; D50.9 Iron deficiency anemia, unspecified; K76.0 Fatty (change of) liver, not elsewhere classified; M10.9 Gout, unspecified; Z86.19 Personal history of other infectious and parasitic diseases; Z79.4 Long term (current) use of insulin; Z79.899 Other long term (current) drug therapy
CPT/HCPCS: 71045; 74176; 76705; 78452; 80048 ×3; 80053; 80061 ×2; 80306; 81001; 82553 ×2; 82962 ×3; 83036; 83690; 84484 ×3; 85025 ×4; 85048; 86361; 87522; 87536; 93005 ×2; 93017; 93306; 94760; 96361 ×3; 96374; 97139 ×3; 99285; A9500; G0378 ×3; 36415; 36416; 93010; J1644; J1815; J2270; J2785

== ENCOUNTER 2019-06-30 07:52 | Emergency (ER) | payer MEDICARE, MEDICAID ==
--- NOTE | 2019-06-30 08:55 | RAD ---
SINGLE VIEW OF THE CHEST: COMPARISON: 10/31/2018. HISTORY: Fall 3 days ago and hit right side with right chest pain. FINDINGS: Single view of the chest shows a normal sized cardiomediastinal silhouette. There is no evidence of c onsolidation, mass, or pleural effusion. The bones are unremarkable. IMPRESSION: No evidence of acute cardiopulmonary disease. POS: [facility]
== END 2019-06-30 08:33 | disposition home or self-care (01) ==
LOC: ERS 07:52
DX: S29.9XXA Unspecified injury of thorax, initial encounter (principal); I10 Essential (primary) hypertension; E11.9 Type 2 diabetes mellitus without complications; M06.9 Rheumatoid arthritis, unspecified; B20 Human immunodeficiency virus [HIV] disease; Z79.4 Long term (current) use of insulin; Z79.899 Other long term (current) drug therapy; W01.0XXA Fall on same level from slipping, tripping and stumbling without subsequent striking against object, initial encounter
CPT/HCPCS: 71045

== ENCOUNTER 2019-08-01 17:19 | Emergency (ER) | payer MEDICARE, MEDICAID | END 2019-08-01 17:52 | disposition home or self-care (01) | LOC: ERS 17:19 | DX: K02.9 Dental caries, unspecified (principal); B20 Human immunodeficiency virus [HIV] disease; I10 Essential (primary) hypertension; E11.9 Type 2 diabetes mellitus without complications; M06.9 Rheumatoid arthritis, unspecified | CPT/HCPCS: 99282 ==

== ENCOUNTER 2021-10-18 09:26 | Emergency (ER) | payer MEDICARE, MEDICAID ==
[2021-10-18] MEDS ORDERED: Ketorolac Tromethamine 30 MG/ML VIAL ONE (11:24)
== END 2021-10-18 11:37 | disposition home or self-care (01) ==
LOC: ERS 09:26
DX: M25.512 Pain in left shoulder (principal); I10 Essential (primary) hypertension; E11.9 Type 2 diabetes mellitus without complications; Z79.4 Long term (current) use of insulin; W19.XXXA Unspecified fall, initial encounter
CPT/HCPCS: 71046; 96374; J1885

== ENCOUNTER 2023-09-25 09:21 | Emergency (ER) | payer MEDICARE, MEDICAID ==
[2023-09-25 11:13] LABS: Bilirubin Negative (Negative); Blood, Urine Negative (Negative); Clarity Clear (Clear); Glucose, Urine (Dipstick) Negative (Negative); Ketone, Urine Negative (Negative); Leukocyte Negative (Negative); Nitrite Negative (Negative); Protein, Urine (Dipstick) Negative (Neg-Trace); Urobilinogen 0.2 mg/dL (Less than 2)
[2023-09-25 11:25] LABS: Bacteria/HPF None Seen HPF (None Seen); CAUTI Indications for Culture Pelvic or flank pain; RBC/HPF None Seen HPF (0-3); Squamous Epithelial None Seen HPF (0-3); WBC/HPF 0-3 HPF (0-3)
[2023-09-25 11:33] LABS: Urine Culture Reflex No No
[2023-09-25 11:36] LABS: #Basophils Less than 0.03 10x3/uL (0.0-0.2); %Basophils 0.5 % (0.0-1.0); %Eosinophils 3.8 % (0.0-10.0); %Lymphocytes 20.5 % (21.0-51.0); %Monocytes 8.3 % (0.0-10.0); %Neutrophils 65.1 % (42.0-75.0); Hematocrit 36.8 % (42.0-52.0); Hemoglobin 12.3 g/dL (14.0-18.0); Mean Corpuscular HGB CONC 33.4 g/dL (32.0-36.0); Mean Corpuscular Hemoglobin 25.5 pg (27.0-31.0); Mean Corpuscular Volume 76.2 fL (78.0-98.0); Mean Platelet Volume 9.3 fL (7.4-10.4); Platelet Count 304 10x3/uL (130-400); RBC Distribution Width 14.8 % (11.5-14.5); Red Blood Cell (RBC) Count 4.83 mill/uL (4.70-6.10)
[2023-09-25 11:56] LABS: ALT (SGPT) 17 U/L (8-55); AST (SGOT) 18 U/L (5-34); Albumin 2.8 g/dL (3.4-4.8); Alkaline Phosphatase 85 U/L (40-110); Anion Gap 13 mmol/L (10-20); BUN (Urea Nitrogen) 24 mg/dL (8.4-25.7); Bilirubin, Total 0.3 mg/dL (0.2-1.2); Calc. Creatinine Clearance 0 mL/min (70-130); Calcium 9.2 mg/dL (7.8-10.44); Carbon Dioxide 23 mmol/L (23-31); Chloride 108 mmol/L (98-107); Estimated GFR 88; Globulin 4.9 g/dL (2.4-3.5); Glucose 83 mg/dL (80-115); Lipase 27 U/L (8-78); Potassium 3.7 mmol/L (3.5-5.1); Protein, Total 7.7 g/dL (5.8-8.1); Sodium 140 mmol/L (136-145)
== END 2023-09-25 12:46 | disposition home or self-care (01) ==
LOC: ERS 09:21
DX: R35.0 Frequency of micturition (principal); I10 Essential (primary) hypertension; E11.9 Type 2 diabetes mellitus without complications; B20 Human immunodeficiency virus [HIV] disease
CPT/HCPCS: 36415; 80053; 81001; 83690; 85025; 99284